=== PATIENT | male | born 1985 | race American Indian/Alaskan Native ===

== ENCOUNTER 2022-01-08 05:15 | Inpatient (IN) | payer SELFPAY ==
[2022-01-08] MEDS ORDERED: SODIUM CHLORIDE 0.9% 1000 ML 1,000 ML IV ONE ×2 (06:32→10:00)
[2022-01-08] MEDS ORDERED: fentaNYL 100 MCG/2 ML INJ IV ONE ×2 (06:32→09:00)
[2022-01-08] MEDS ORDERED: FAMOTIDINE 20 MG/2 ML INJ IV ONE ×2 (06:32→09:00)
[2022-01-08] MEDS ORDERED: ONDANSETRON 4 MG/2 ML INJ IV ONE ×2 (06:32→09:00)
--- NOTE | 2022-01-08 06:37 | Emergency Department Report ---
HPI - General Chief Complaint: Abdominal Pain Time Seen by Provider: 01/08/22 06:25 - HPI HPI: Room 40 Patient is a 36-year-old male present with a chief complaint of abdominal pain. Patient states he drinks alcohol frequently and has a history of chronic pancreatitis. Patient states symptoms began 2 days ago after consuming wine he developed epigastric and left upper quadrant abdominal pain described as sharp and burning in nature. Patient then developed nausea vomiting. Patient denies history of diarrhea or fever at home however this morning the significant other states EMS was called and they thought the patient had a fever. Patient comp lains of some shortness of breath. Patient currently gives his pain a score of 10/10 ED Past Medical Hx - Past Medical History Previous Medical History?: Yes Additional medical history: Chronic pancreatitis - Surgical History Past Surgical History?: No - Family History Family history: no significant - Social History Smoking Status: Current Every Day Smoker (1/7 pack/day) Substance Use Type: None (Denies illicit drug use), Alcohol (Frequently) ED Review of Systems ROS: Stated complaint: ABDOMINAL PAIN Other details as noted in HPI Constitutional: fever (Questionable) Eyes: denies: eye pain ENT: denies: throat pain Respiratory: shortness of breath Cardiovascular: denies: chest pain Endocrine: no symptoms reported Gastrointestinal: abdominal pain, nausea, vomiting. denies: diarrhea Genitourinary: denies: dysuria Musculoskeletal: denies: back pain Neurological: denies: headache Physical Exam - Physical Exam Vital Signs: Vital Signs 01/08/22 05:54 Temperature 98.6 F Pulse Rate 67 Respiratory 18 Rate Blood Pressure 147/95 O2 Sat by Pulse 96 Oximetry Physical Exam: GENERAL: The patient is well-developed well-nourished male lying on stretcher no t appearing to be in acute distress. [] HEENT: Normocephalic. Atraumatic. Extraocular motions are intact. Patient has moist mucous membranes. NECK: Supple. Trachea midline CHEST/LUNGS: Clear to auscultation. There is no respiratory distress noted. HEART/CARDIOVASCULAR: Regular. There is no tachycardia. There is no gallop rub or murmur. ABDOMEN: Abdomen is soft, with tenderness to palpation in the right upper quadrant, midepigastric and left upper quadrant. The remainder the abdomen is soft and nontender. Patient has normal bowel sounds. There is no abdominal distention. SKIN: There is no rash. There is no edema. There is no diaphoresis. NEURO: The patient is awake, alert, and oriented. The patient is cooperative. The patient has no focal neurologic deficits. The patient has normal speech. GCS 15 MUSCULOSKELETAL: There is no evidence of acute injury. ED Course Vital Signs 01/08/22 05:54 Temperature 98.6 F Pulse Rate 67 Respiratory 18 Rate Blood Pressure 147/95 O2 Sat by Pulse 96 Oximetry ED Medical Decision Making - Lab Data Result diagrams: 01/08/22 06:33 01/08/22 06:33 - Radiology Data Radiology results: report reviewed (CT abdomen pelvis CT chest), image reviewed (CT abdomen pelvis, CT chest) [facility] [address] [place] [address] Cat Scan Report Signed Patient: LOUIE SOSA MR# : [id number] : 1985 Acct:[id number] Age/Sex: 36 / M ADM Date: 01/08/22 Loc: ED Attending Dr: Ordering Physician: CANDICE BENAVIDES MD Date of Service: 01/08/22 Procedure(s): CT abdomen pelvis w con Accession Number(s): [id number] cc: CANDICE BENAVIDES MD CT ABDOMEN AND PELVIS WITH CONTRAST HISTORY: Epigastric and left upper quadrant pain. COMPARISON: None. TECHNIQUE: CT images of the abdomen and pelvis were obtained following administration of intravenous contrast. All CT scans at this location are performed using CT dose reduction for ALARA by means of automated exposure control. CONTRAST: 100 ml of intravenous contrast administe red. FINDINGS: Lungs/bones: Lung bases are clear Abdomen/pelvis: There is diffuse fatty infiltration the liver. There is marked inflammatory change surrounding the pancreas most significant in the body and pancreatic tail. Some low signal density seen in the pancreatic tail which is indistinct. Inflammatory changes seen surrounding the stomach and left upper abdomen bowel loops. There is some secondary mild inflammation thickening of the splenic flexure and left colon. No drainable abscess is seen. Adrenal glands, kidneys appear normal. No bowel obstruction. There is free fluid within the pelvis. The appendix is not well seen. Urinary bladder appears normal. Focal area of dilatation of the p enile urethra just distal to the prosthetic urethra best seen on image 171. Small scattered nodes seen throughout the mesentery no acute bone findings are seen. IMPRESSION: 1. Diffuse inflammatory change and fluid within and surrounding the pancreas in left upper abdomen concerning for acute pancrea titis. Heterogeneity within the body and tail could represent some early necrosis. No drainable fluid collection is seen. There is secondary inflammatory change and thickening of the splenic flexure of the colon. 2. Free fluid is seen in the pelvis. The appendix is not well seen. 3. Fatty infiltration the liver. Signer Name: Salas Robin MD Signed: 01/08/2022 9:25 AM Workstation Name: [id number] Transcribed By: CW Dictated By: JAYNE ROBIN MD Electronically Authenticated By: JAYNE ROBIN MD Signed Date/Time: 01/08/22924 DD/ 1 TD/TT: [facility] [address] [place] [address] Cat Scan Report Signed Patient: LOUIE SOSA MR# : [id number] : 1985 Acct:[id number] Age/Sex: 36 / M ADM Date: 01/08/22 Loc: ED Attending Dr: Ordering Physician: CANDICE BENAVIDES MD Date of Service: 01/08/22 Procedure(s): CT angio chest Accession Number(s): [id number] cc: CANDICE BENAVIDES MD CTA CHEST WITH CONTRAST INDICATION / CLINICAL INFORMATION: Left lower chest pain. TECHNIQUE: Axial CT images were obtained through the chest after injection of IV contrast. 3 plane MIP and/or 3D reconstructions were produced. All CT scans at this location are performed using CT dose reduction for ALARA by means of automated exposure control. COMPARISON: None available. FINDINGS: The pulmonary arteries are patent without filling defect or evidence for PTE. Heart and aorta appear normal. No focal consolidation or pleural effusion. No definite mediastinal or hilar adenopathy. Trachea appears normal. In the upper abdomen there is inflammatory change surrounding the pancreatic tail and within the left upper abdomen. Diffuse fatty infiltration liver IMPRESSION: 1. No CT evidence for pulmonary embolism. 2. Inflammatory change with fluid and inflammation surrounding the pancreatic tail and left upper abdomen. Findings could be seen with pancreatitis. 3. Fatty infiltration the liver. Signer Name: Salas Robin MD Signed: 01/08/2022 9:05 AM Workstation Name: [id number] Transcribed By: CW Dictated By: JAYNE ROBIN MD Electronically Authenticated By: JAYNE ROBIN MD Signed Date/Time: 01/08/22904 DD/ 2 TD/TT: - Differential Diagnosis Acute on chronic pancreatitis, gastritis, peptic ulcer disease, PE, ACS Critical care attestation.: If time is entered above; I have spent that time in minutes in the direct care of this critically ill patient, excluding procedure time. ED Disposition Clinical Impression: Acute pancreatitis, Acute abdominal pain Disposition: ADMITTED INPATIENT Is pt being admited?: Yes Does the pt Need Aspirin: No Condition: Fair Referrals: JULES SORENSEN MD [Primary Care Provider] - 3-5 Days Time of Disposition: 10:02 (Care transferred to hospitalist (Dr. Thompson))
[2022-01-08 07:13] LABS: Basophils % (Auto) 0.3 % (0.0-1.8); Eosinophils # (Auto) 0.1 K/mm3 (0.0-0.4); Eosinophils % (Auto) 0.5 % (0.0-4.3); Hematocrit 45.6 % (35.5-45.6); Hemoglobin 15.2 gm/dl (11.8-15.2); Lymphocytes # (Auto) 0.6 K/mm3 (1.2-5.4); Lymphocytes % (Auto) 4.8 % (13.4-35.0); Mean Corpuscular HGB Conc 33 % (32-34); Mean Corpuscular Volume 92 fl (84-94); Monocytes # (Auto) 0.9 K/mm3 (0.0-0.8); Monocytes % (Auto) 7.2 % (0.0-7.3); Platelet Count 240 K/mm3 (140-440); Red Blood Count 4.96 M/mm3 (3.65-5.03); Red Cell Distribution Width 12.3 % (13.2-15.2)
[2022-01-08 07:28] LABS: Alanine Aminotransferase 67 units/L (7-56); Albumin 5.3 g/dL (3.9-5); BUN/Creatinine Ratio 10; Blood Urea Nitrogen 8 mg/dL (9-20); Calcium 9.7 mg/dL (8.4-10.2); Hemolysis Index 4
[2022-01-08 07:29] LABS: Creatine Kinase MB 1.4 ng/mL (0.0-4.0)
--- NOTE | 2022-01-08 09:10 | Cat Scan Report ---
CTA CHEST WITH CONTRAST INDICATION / CLINICAL INFORMATION: Left lower chest pain. TECHNIQUE: Axial CT images were obtained through the chest after injection of IV contrast. 3 plane AL P and/or 3D reconstructions were produced. All CT scans at this location are performed using CT dose reduction for ALARA by means of automated exposure control. COMPARISON: None available. FINDINGS: The pulmonary arteries are patent without filling defect or evidence for PTE. Heart and aorta appear normal. No focal consolidation or pleural effusion. No definite mediastinal or hilar adenopathy. Trac hea appears normal. In the upper abdomen there is inflammatory change surrounding the pancreatic tail and within the left upper abdomen. Diffuse fatty infiltration liver IMPRESSION: 1. No CT evidence for pulmonary embolism. 2. Inflammatory change with fluid and inflammation surrounding the pancreatic tail and left upper abd omen. Findings could be seen with pancreatitis. 3. Fatty infiltration the liver. Signer Name: Salas Robin MD Signed: 01/08/2022 9:05 AM Workstation Name: [id number]
--- NOTE | 2022-01-08 09:29 | Cat Scan Report ---
CT ABDOMEN AND PELVIS WITH CONTRAST HISTORY: Epigastric and left upper quadrant pain. COMPARISON: None. TECHNIQUE: CT images of the abdomen and pelvis were obtained following administration of intravenous contrast. All CT scans at this location are performed using CT dose reduction for ALARA by means of automated exposure control. CONTRAST: 100 ml of intravenous contrast administered. FINDINGS: Lungs/bones: Lung bases are clear Abdomen/pelvis: There is diffuse fatty infiltration the liver. There is marked inflammatory change s urrounding the pancreas most significant in the body and pancreatic tail. Some low signal density see n in the pancreatic tail which is indistinct. Inflammatory changes seen surrounding the stomach and l eft upper abdomen bowel loops. There is some secondary mild inflammation thickening of the splenic fl exure and left colon. No drainable abscess is seen. Adrenal glands, kidneys appear normal. No bowel o bstruction. There is free fluid within the pelvis. The appendix is not well seen. Urinary bladder appears normal. Focal area of dilatation of the penile urethra just distal to the prosthetic urethra best seen on im age 171. Small scattered nodes seen throughout the mesentery no acute bone findings are seen. IMPRESSION: 1. Diffuse inflammatory change and fluid within and surrounding the pancreas in left upper abdomen co ncerning for acute pancreatitis. Heterogeneity within the body and tail could represent some early ne crosis. No drainable fluid collection is seen. There is secondary inflammatory change and thickening of the splenic flexure of the colon. 2. Free fluid is seen in the pelvis. The appendix is not well seen. 3. Fatty infiltration the liver. Signer Name: Salas Robin MD Signed: 01/08/2022 9:25 AM Workstation Name: [id number]
[2022-01-08] MEDS ORDERED: HYDROmorphone 1 MG/1 ML INJ IV ONE (10:00)
[2022-01-08] MEDS ORDERED: ACETAMINOPHEN 325 MG TAB PO PRN (10:44)
[2022-01-08] MEDS ORDERED: ALBUTEROL 2.5 MG/3 ML NEBU IH PRN (10:44)
[2022-01-08] MEDS ORDERED: ONDANSETRON 4 MG/2 ML INJ IV PRN (10:44)
[2022-01-08] MEDS ORDERED: LORazepam 2 MG/ML VIAL IV PRN ×2 (10:44)
[2022-01-08] MEDS ORDERED: NALOXONE 0.4 MG/1 ML INJ IV PRN (10:44)
--- NOTE | 2022-01-08 10:55 | History and Physical Report ---
History of Present Illness Date of examination: 01/08/22 Date of admission: 01/08/22 Chief complaint: Abdominal pain with nausea vomiting History of present illness: Patient is a 36-year-old male with no significant past medical history except for prior pancreatitis from alcohol use present with a chief complaint of abdominal pain. Patient states he drinks alcohol frequently and has a history of chronic pancreatitis. Patient states symptoms began 2 days ago after consuming wine he developed epigastric and left upper quadrant abdominal pain described as sharp and burning in nature. Patient then developed nausea vomiting. Patient denies history of diarrhea or fever at home however this morning the significant other states EMS was called and they thought the patient had a fever. Patient complains of some shortness of breath. In the ED admitted with abdominal pain score of 10/10 now on 03/12 and states that the fentanyl he was given was not working. He denies any hematemesis, diarrhea or melena. Imaging studies done in the ER shows possible early necrosis. Patient denies any fever. Past History Past Medical History: other (Pancreatitis) Past Surgical History: No surgical history Social history: lives with family, smoking, alcohol abuse, full code Family history: no significant family history Medications and Allergies Allergies Allergy/AdvReac Type Severity Reaction Status Date / Time No Known Allergies Allergy Unverified 01/08/22 05:58 Active Meds: Active Medications Acetaminophen (Acetaminophen 325 Mg Tab) 650 mg PO Q4H PRN PRN Reason: Pain MILD(1-3)/Fever >100.5/PALMER Albuterol (Albuterol 2.5 Mg/3 Ml Nebu) 2.5 mg IH Q4HRT PRN PRN Reason: Shortness Of Breath Famotidine (Famotidine 20 Mg/2 Ml Inj) 20 mg IV BID KEYON Hydromorphone HCl (Hydromorphone 1 Mg/1 Ml Inj) 1 mg IV Q6H PRN PRN Reason: Pain , Severe (7-10) Sodium Chloride (Nacl 0.9% 1000 Ml) 1,000 mls @ 125 mls/hr IV ONCE ONE Stop: 01/08/22 17:59 Lactated Ringer's (Lactated Ringers) 1,000 mls @ 125 mls/hr IV DIRECT KEYON Lorazepam (Lorazepam 2 Mg/Ml Vial) 2 mg IV Q1H PRN PRN Reason: CIWA-Ar 8-15 Lorazepam (Lorazepam 2 Mg/Ml Vial) 4 mg IV Q1H PRN PRN Reason: CIWA-Ar 16-25 Morphine Sulfate (Morphine 2 Mg/1 Ml Inj) 2 mg IV Q4H PRN PRN Reason: Pain, Moderate (4-6) Naloxone HCl (Naloxone 0.4 Mg/1 Ml Inj) 0.1 mg IV Q2MIN PRN PRN Reason: Res Rate </= 8 or 02 SAT < 92% Ondansetron HCl (Ondansetron 4 Mg/2 Ml Inj) 4 mg IV Q4H PRN PRN Reason: Nausea And Vomiting Senna (Sennosides 8.6 Mg Tab) 8.6 mg PO Q12HR KEYON Sodium Chloride (Sodium Chloride 0.9% 10 Ml Flush Syringe) 10 ml IV BID KEYON Sodium Chloride (Sodium Chloride 0.9% 10 Ml Flush Syringe) 10 ml IV PRN PRN PRN Reason: LINE FLUSH Review of Systems All systems: negative Constitutional: no weight gain, no fever Gastrointestinal: abdominal pain, nausea, vomiting, no diarrhea, no constipa tion, no change in bowel habits, no hematemesis, no coffee ground emesis, no BRBPR, no melena, no hematochezia, no loss of appetite, no early satiety, no heartburn, no indigestion, no belching Exam - Physical Exam Narrative exam: VITAL SIGNS: Reviewed. GENERAL: The patient appears normally developed, Vital signs as documented. HEAD: No signs of head trauma. EYES: Pupils are equal. Extraocular motions intact. EARS: Hearing grossly intact. MOUTH: Oropharynx is normal. NECK: No adenopathy, no JVD. CHEST: Chest with clear breath sounds bilaterally. No wheezes, rales, or rhonchi. CARDIAC: Regular rate and rhythm. S1 and S2, without murmurs, gallops, or rubs. VASCULAR: No Edema. Peripheral pulses normal and equal in all extremities. ABDOMEN: Soft, tender, guarding but no rebound and non distended. No masses palpated. Bowel Sounds normal. MUSCULOSKELETAL: Good range of motion of all major joints. Extremities without clubbing, cyanosis or edema. NEUROLOGIC EXAM: Alert and oriented x 3 No focal sensory or strength deficits. Speech normal. Follows commands. PSYCHIATRIC: Mood normal. SKIN: detail exam as documented in skin assessment - Constitutional Vitals: Temp Pulse Resp BP Pulse Ox 99.4 F 95 H 18 140/73 94 01/08/22 09:41 01/08/22 09:41 01/08/22 09:41 01/08/22 09:41 01/08/22 09:41 HEART Score - HEART Score Troponin: Troponin T < 0.010 ng/mL (0.00-0.029) 01/08/22 06:41 Results - Labs CBC & Chem 7: 01/08/22 06:33 01/08/22 06:33 Labs: Laboratory Last Values WBC 12.2 K/mm3 (4.5-11.0) H 01/08/22 06:33 RBC 4.96 M/mm3 (3.65-5.03) 01/08/22 06:33 Hgb 15.2 gm/dl (11.8-15.2) 01/08/22 06:33 Hct 45.6 % (35.5-45.6) 01/08/22 06:33 MCV 92 fl (84-94) 01/08/22 06:33 MCH 31 pg (28-32) 01/08/22 06:33 MCHC 33 % (32-34) 01/08/22 06:33 RDW 12.3 % (13.2-15.2) L 01/08/22 06:33 Plt Count 240 K/mm3 (140-440) 01/08/22 06:33 Lymph % (Auto) 4.8 % (13.4-35.0) L 01/08/22 06:33 Trigg % (Auto) 7.2 % (0.0-7.3) 01/08/22 06:33 Eos % (Auto) 0.5 % (0.0-4.3) 01/08/22 06:33 Baso % (Auto) 0.3 % (0.0-1.8) 01/08/22 06:33 Lymph # (Auto) 0.6 K/mm3 (1.2-5.4) L 01/08/22 06:33 Trigg # (Auto) 0.9 K/mm3 (0.0-0.8) H 01/08/22 06:33 Eos # (Auto) 0.1 K/mm3 (0.0-0.4) 01/08/22 06:33 Baso # (Auto) 0.0 K/mm3 (0.0-0.1) 01/08/22 06:33 Seg Neutrophils % 87.2 % (40.0-70.0) H 01/08/22 06:33 Seg Neutrophils # 10.6 K/mm3 (1.8-7.7) H 01/08/22 06:33 Sodium 138 mmol/L (137-145) 01/08/22 06:33 Potassium 4.1 mmol/L (3.6-5.0) 01/08/22 06:33 Chloride 96.0 mmol/L (98-107) L 01/08/22 06:33 Carbon Dioxide 29 mmol/L (22-30) 01/08/22 06:33 Anion Gap 17 mmol/L 01/08/22 06:33 BUN 8 mg/dL (9-20) L 01/08/22 06:33 Creatinine 0.8 mg/dL (0.8-1.3) 01/08/22 06:33 Estimated GFR > 60 ml/min 01/08/22 06:33 BUN/Creatinine Ratio 10 % 01/08/22 06:33 Glucose 108 mg/dL (75-100) H 01/08/22 06:33 Calcium 9.7 mg/dL (8.4-10.2) 01/08/22 06:33 Total Bilirubin 0.80 mg/dL (0.1-1.2) 01/08/22 06:33 AST 42 units/L (5-40) H 01/08/22 06:33 ALT 67 units/L (7-56) H 01/08/22 06:33 Alkaline Phosphatase 130 units/L (35-129) H 01/08/22 06:33 Total Creatine Kinase 247 units/L (55-170) H 01/08/22 06:41 CK-MB (CK-2) 1.4 ng/mL (0.0-4.0) 01/08/22 06:41 CK-MB (CK-2) Rel Index 0.5 (0-4) 01/08/22 06:41 Troponin T < 0.010 ng/mL (0.00-0.029) 01/08/22 06:41 Total Protein 8.1 g/dL (6.3-8.2) 01/08/22 06:33 Albumin 5.3 g/dL (3.9-5) H 01/08/22 06:33 Albumin/Globulin Ratio 1.9 % 01/08/22 06:33 Lipase 915 units/L (13-60) H 01/08/22 06:33 Assessment and Plan Assessment and plan: Patient is a 36-year-old male with no significant past medical history except for prior pancreatitis from alcohol use present with a chief complaint of abdominal pain. Patient states he drinks alcohol frequently and has a history of chronic pancreatitis. Patient states symptoms began 2 days ago after consuming wine he developed epigastric and left upper quadrant abdominal pain described as sharp and burning in nature. Patient then developed nausea vomiting. Patient denies history of diarrhea or fever at home however this morning the significant other states EMS was called and they thought the patient had a fever. Patient complains of some shortness of breath. In the ED admitted with abdominal pain score of 10/10 now on 03/12 and states that the fentanyl he was given was not working. He denies any hematemesis, diarrhea or melena. Imaging studies done in the ER shows possible early necrosis. Patient denies any fever. Radiology results: report reviewed (CT abdomen pelvis CT chest), image reviewed (CT abdomen pelvis, CT chest) 1. Diffuse inflammatory change and fluid within and surrounding the pancreas in left upper abdomen concerning for acute pancreatitis. Heterogeneity within the body and tail could represent some early necrosis. No drainable fluid collection is seen. There is secondary inflammatory change and thickening of the splenic flexure of the colon. 2. Free fluid is seen in the pelvis. The appendix is not well seen. 3. Fatty infiltration the liver. CT angio chest IMPRESSION: 1. No CT evidence for pulmonary embolism. 2. Inflammatory change with fluid and inflammation surrounding the pancreatic tail and left upper abdomen. Findings could be seen with pancreatitis. 3. Fatty infiltration the liver. Acute on chronic pancreatitis likely secondary to EtOH use EtOH use disorder and dependence Abdominal pain secondary to above Systemic inflammatory response syndrome secondary to acute pancreatitis Elevated transaminases Tobacco use disorder Plan Admit to MedSurg unit Hydration with lactated Ringer's Start on Zosyn considering possible necrotic pancreas GI consultation Pain control Antiemetic Monitor labs replace electrolytes [facility] protocol for withdrawal Thiamine, multivitamin, and folic acid Check magnesium level Counseling provided to the patient about lifestyle changes and also EtOH and tobacco use disorder. Total time spent on counseling 30 minutes family at bedside discussed with them. Prognosis guarded Advance Directives: Yes Plan of care discussed with patient/family: Yes
[2022-01-08] MEDS: PIPERACIL/TAZOBACTA 4.5/NS 100 4.5 GM/100 ML VIAL IV SCH ×2 (14:01→22:01)
[2022-01-08] MEDS: MORPHINE 2 MG/1 ML INJ IV PRN ×2 (14:03→19:16)
[2022-01-08] MEDS: LACTATED RINGERS 1,000 ML IV SCH ×2 (14:24→23:52)
[2022-01-08] MEDS: HYDROmorphone 1 MG/1 ML INJ IV PRN (21:53)
[2022-01-08] MEDS: SENNOSIDES 8.6 MG TAB PO SCH (21:54)
[2022-01-08] MEDS: FAMOTIDINE 20 MG/2 ML INJ IV SCH (21:54)
[2022-01-09] MEDS: MORPHINE 2 MG/1 ML INJ IV PRN ×3 (00:26→19:22)
[2022-01-09] MEDS: PIPERACIL/TAZOBACTA 4.5/NS 100 4.5 GM/100 ML VIAL IV SCH ×4 (03:31→22:27)
[2022-01-09] MEDS: HYDROmorphone 1 MG/1 ML INJ IV PRN ×3 (04:49→22:35)
[2022-01-09 06:57] LABS: Basophils % (Auto) 0.2 % (0.0-1.8); Eosinophils # (Auto) 0.1 K/mm3 (0.0-0.4); Eosinophils % (Auto) 0.3 % (0.0-4.3); Hematocrit 44.4 % (35.5-45.6); Hemoglobin 14.6 gm/dl (11.8-15.2); Lymphocytes # (Auto) 0.5 K/mm3 (1.2-5.4); Lymphocytes % (Auto) 2.7 % (13.4-35.0); Mean Corpuscular HGB Conc 33 % (32-34); Mean Corpuscular Volume 92 fl (84-94); Monocytes # (Auto) 1.5 K/mm3 (0.0-0.8); Monocytes % (Auto) 8.1 % (0.0-7.3); Platelet Count 229 K/mm3 (140-440); Red Blood Count 4.83 M/mm3 (3.65-5.03); Red Cell Distribution Width 12.3 % (13.2-15.2)
[2022-01-09 07:22] LABS: Alanine Aminotransferase 44 units/L (7-56); Albumin 4.7 g/dL (3.9-5); BUN/Creatinine Ratio 11; Blood Urea Nitrogen 9 mg/dL (9-20); Calcium 9.6 mg/dL (8.4-10.2); Hemolysis Index 3
[2022-01-09] MEDS: FAMOTIDINE 20 MG/2 ML INJ IV SCH ×2 (09:06→22:27)
[2022-01-09] MEDS: SENNOSIDES 8.6 MG TAB PO SCH ×2 (09:06→22:27)
[2022-01-09] MEDS: LACTATED RINGERS 1,000 ML IV SCH ×2 (09:07→20:30)
--- NOTE | 2022-01-09 09:38 | Gastroenterology Consultation ---
History of Present Illness - Reason for Consult Consult date: 01/09/22 acute pancreatitis Requesting physician: LINDA BAKER - History of Present Illness Patient is a 36-year-old male with no significant past medical history except for prior pancreatitis from alcohol use present with a chief complaint of abdominal pain. Patient states he drinks alcohol frequently and has a history of chronic pancreatitis. Patient reports 3 days abd pain, epigastric, sharp, severe, radiating to the back, worse with eating better with nothing, constant Patient reports he has been cutting back on his alcohol drinking 1-2 bottles of wine a night as well as a few large cans of beer however he reports he was celebrating a few days ago drink multiple bottles of wine and then the next day drank half a bottle of tequila subsequent to that developed the pain as above and the pancreatitis Patient's is with him in bed and present for history Obtained/updated/reviewed patient's current medications Past History Past Medical History: other (Pancreatitis) Past Surgical History: No surgical history Social history: lives with family, smoking, alcohol abuse, full code Family history: no significant family history Medications and Allergies Allergies Allergy/AdvReac Type Severity Reaction Status Date / Time No Known Allergies Allergy Verified 01/08/22 16:18 Active Meds: Active Medications Acetaminophen (Acetaminophen 325 Mg Tab) 650 mg PO Q4H PRN PRN Reason: Pain MILD(1-3)/Fever >100.5/PALMER Albuterol (Albuterol 2.5 Mg/3 Ml Nebu) 2.5 mg IH Q4HRT PRN PRN Reason: Shortness Of Breath Famotidine (Famotidine 20 Mg/2 Ml Inj) 20 mg IV BID [facility] Last Admin: 01/09/22 09:06 Dose: 20 mg Hydromorphone HCl (Hydromorphone 1 Mg/1 Ml Inj) 1 mg IV Q6H PRN PRN Reason: Pain , Severe (7-10) Last Admin: 01/09/22 04:49 Dose: 1 mg Lactated Ringer's (Lactated Ringers) 1,000 mls @ 125 mls/hr IV DIRECT KEYON Last Admin: 01/09/22 09:07 Dose: 125 mls/hr Piperacillin Sod/Tazobactam Sod (Zosyn/Ns 4.5gm/100ml) 4.5 gm in 100 mls @ 200 mls/hr IV Q8H KEYON; Protocol Last Infusion: 01/09/22 04:51 Dose: Infused Lorazepam (Lorazepam 2 Mg/Ml Vial) 2 mg IV Q1H PRN PRN Reason: CIWA-Ar 8-15 Last Admin: 01/08/22 14:39 Dose: 2 mg Lorazepam (Lorazepam 2 Mg/Ml Vial) 4 mg IV Q1H PRN PRN Reason: CIWA-Ar 16-25 Morphine Sulfate (Morphine 2 Mg/1 Ml Inj) 2 mg IV Q4H PRN PRN Reason: Pain, Moderate (4-6) Last Admin: 01/09/22 08:49 Dose: 2 mg Naloxone HCl (Naloxone 0.4 Mg/1 Ml Inj) 0.1 mg IV Q2MIN PRN PRN Reason: Res Rate </= 8 or 02 SAT < 92% Ondansetron HCl (Ondansetron 4 Mg/2 Ml Inj) 4 mg IV Q4H PRN PRN Reason: Nausea And Vomiting Senna (Sennosides 8.6 Mg Tab) 8.6 mg PO Q12HR [facility] Last Admin: 01/09/22 09:06 Dose: 8.6 mg Sodium Chloride (Sodium Chloride 0.9% 10 Ml Flush Syringe) 10 ml IV BID KEYON Last Admin: 01/09/22 09:06 Dose: 10 ml Sodium Chloride (Sodium Chloride 0.9% 10 Ml Flush Syringe) 10 ml IV PRN PRN PRN Reason: LINE FLUSH Review of Systems - Review of Systems All systems: negative (10 Systems reviewed and negative except as mentioned above in the history of present illness) Exam - Constitutional Vital Signs: Temp Pulse Resp BP Pulse Ox 98.6 F 59 L 16 142/86 95 01/09/22 05:04 01/09/22 05:04 01/09/22 05:04 01/09/22 05:04 01/09/22 05:04 General appearance: no acute distress - EENT Eyes: EOM intact ENT: hearing intact - Neck Neck: supple - Respiratory Respiratory effort: normal - Cardiovascular Rhythm: regular - Gastrointestinal General gastrointestinal: Present: soft, tender, normal bowel sounds - Integumentary Integumentary: Present: dry - Musculoskeletal Musculoskeletal: normal - Neurologic Neurological: alert and oriented x3 - Psychiatric Psychiatric: appropriate mood/affect - Labs CBC & Chem 7: 01/09/22 05:55 01/09/22 05:55 Lab Results: Laboratory Results - last 24 hr 01/08/22 01/09/22 01/09/22 06:44 05:55 05:55 WBC 18.3 H RBC 4.83 Hgb 14.6 Hct 44.4 MCV 92 MCH 30 MCHC 33 RDW 12.3 L Plt Count 229 Lymph % (Auto) 2.7 L [place] % (Auto) 8.1 H Eos % (Auto) 0.3 Baso % (Auto) 0.2 Lymph # (Auto) 0.5 L [place] # (Auto) 1.5 H Eos # (Auto) 0.1 Baso # (Auto) 0.0 Seg Neutrophils % 88.7 H Seg Neutrophils # 16.2 H Sodium 136 L Potassium 3.9 Chloride 96.3 L Carbon Dioxide 27 Anion Gap 17 BUN 9 Creatinine 0.8 Estimated GFR > 60 BUN/Creatinine Ratio 11 Glucose 83 Calcium 9.6 Magnesium 1.70 Total Bilirubin 1.20 AST 29 ALT 44 Alkaline Phosphatase 110 Total Protein 7.0 Albumin 4.7 Albumin/Globulin Ratio 2.0 Lipase 641 H Assessment and Plan Patient denies new medications etc. so given history of recent increased alcohol use acute alcoholic pancreatitis is presumably the source I discussed with him and his at length the importance of alcohol cessation I am increasing patient's IV fluids, starting patient on a clear liquid diet advance as tolerated and continue as needed pain medication We will continue with daily - Patient Problems (1) Acute pancreatitis Current Visit: Yes Status: Acute (2) ETOH abuse Current Visit: Yes Status: Acute (3) Epigastric abdominal pain Current Visit: Yes Status: Acute
--- NOTE | 2022-01-09 11:22 | Electrocardiograph Report ---
[facility] Test Date: 2022-01-08 Test Time: 14:17:16 Pat Name: LOUIE SOSA Department: Room: A368 1 Gender: M College Coach: NARINDER : 1985 Requested By: CANDICE BENAVIDES Order Number: [id number] Reading MD: Dionte Lam Measurements Intervals [place] Rate: 49 P: 63 NH: 169 QRS: 58 QRSD: 94 T: 58 QT: 432 QTc: 389 Interpretive Statements Sinus bradycardia Consider left ventricular hypertrophy ST elev, probable normal early repol pattern No previous ECG available for comparison Electronically Signed On 01-09-2022 11:21:35 EDT by Dionte Lam
--- NOTE | 2022-01-09 12:05 | Progress Note ---
Assessment and Plan Assessment and plan: Patient is a 36-year-old male with no significant past medical history except for prior pancreatitis from alcohol use present with a chief complaint of abdominal pain. Patient states he drinks alcohol frequently and has a history of chronic pancreatitis. Patient states symptoms began 2 days ago after c onsuming wine he developed epigastric and left upper quadrant abdominal pain described as sharp and burning in nature. Patient then developed nausea vomiting. Patient denies history of diarrhea or fever at home however this morning the significant other states EMS was called and they thought the patient had a fever. Patient complains of some shortness of breath. In the ED admitted with abdominal pain score of 10/10 now on 03/12 and states that the fentanyl he was given was not working. He denies any hematemesis, diarrhea or melena. Imaging studies done in the ER shows possible early necrosis. Patient denies any fever. Radiology results: report reviewed (CT abdomen pelvis CT chest), image reviewed (CT abdomen pelvis, CT chest) 1. Diffuse inflammatory change and fluid within and surrounding the pancreas in left upper abdomen concerning for acute pancreatitis. Heterogeneity within the body and tail could represent some early necrosis. No drainable fluid collection is seen. There is secondary inflammatory change and thickening of the splenic flexure of the colon. 2. Free fluid is seen in the pelvis. The appendix is not well seen. 3. Fatty infiltration the liver. CT angio chest IMPRESSION: 1. No CT evidence for pulmonary embolism. 2. Inflammatory change with fluid and inflammation surrounding the pancreatic tail and left upper abdomen. Findings could be seen with pancreatitis. 3. Fatty infiltration the liver. Acute on chronic pancreatitis likely secondary to EtOH use EtOH use disorder and dependence Abdominal pain secondary to above Systemic inflammatory response syndrome secondary to acute pancreatitis Elevated transaminases Leukocytosis Hypomagnesemia Tobacco use disorder Plan 01/09: Patient was admitted for acute pancreatitis secondary to alcohol use. GI saw the patient today increased fluid. Leukocytosis still worsening will keep a clear monitoring of this. Clear liquids started today by GI as tolerated by patient. Again counseling about alcohol use discussed extensively. Lipase is decreasing LFTs improved. Will give Magnesium supplementation Patient can be discharged once tolerating diet. Hydration with lactated Ringer's Continue on Zosyn considering possible necrotic pancreas GI consultation Pain control Antiemetic Monitor labs replace electrolytes [facility] protocol for withdrawal Thiamine, multivitamin, and folic acid Check magnesium level Counseling provided to the patient about lifestyle changes and also EtOH and tobacco use disorder. Total time spent on counseling 30 minutes family at bedside discussed with them. Prognosis guarded History Interval history: Patient seen and examined still with abdominal pain. Mild worsening in leukocytosis noted. Rates the pain 6/10 in intensity. GI input is appreciated Hospitalist Physical - Physical exam Narrative exam: VITAL SIGNS: Reviewed. GENERAL: The patient appears normally developed, does not appear uncomfortable vital signs as documented. HEAD: No signs of head trauma. EYES: Pupils are equal. Extraocular motions intact. EARS: Hearing grossly intact. MOUTH: Oropharynx is normal. NECK: No adenopathy, no JVD. CHEST: Chest with clear breath sounds bilaterally. No wheezes, rales, or rhonchi. CARDIAC: Regular rate and rhythm. S1 and S2, without murmurs, gallops, or rubs. VASCULAR: No Edema. Peripheral pulses normal and equal in all extremities. ABDOMEN: Soft, tender, guarding but no rebound and non distended. No masses palpated. Bowel Sounds normal. MUSCULOSKELETAL: Good range of motion of all major joints. Extremities without clubbing, cyanosis or edema. NEUROLOGIC EXAM: Alert and oriented x 3 No focal sensory or strength deficits. Speech normal. Follows commands. PSYCHIATRIC: Mood normal. SKIN: detail exam as documented in skin assessment - Constitutional Vitals: Temp Pulse Resp BP Pulse Ox 98.6 F 59 L 16 142/86 99 01/09/22 05:04 01/09/22 05:04 01/09/22 05:04 01/09/22 05:04 01/09/22 09:36 HEART Score - HEART Score Troponin: Troponin T < 0.010 ng/mL (0.00-0.029) 01/08/22 06:41 Results - Labs CBC & Chem 7: 01/09/22 05:55 01/09/22 05:55 Labs: Laboratory Last Values WBC 18.3 K/mm3 (4.5-11.0) H 01/09/22 05:55 RBC 4.83 M/mm3 (3.65-5.03) 01/09/22 05:55 Hgb 14.6 gm/dl (11.8-15.2) 01/09/22 05:55 Hct 44.4 % (35.5-45.6) 01/09/22 05:55 MCV 92 fl (84-94) 01/09/22 05:55 MCH 30 pg (28-32) 01/09/22 05:55 MCHC 33 % (32-34) 01/09/22 05:55 RDW 12.3 % (13.2-15.2) L 01/09/22 05:55 Plt Count 229 K/mm3 (140-440) 01/09/22 05:55 Lymph % (Auto) 2.7 % (13.4-35.0) L 01/09/22 05:55 [place] % (Auto) 8.1 % (0.0-7.3) H 01/09/22 05:55 Eos % (Auto) 0.3 % (0.0-4.3) 01/09/22 05:55 Baso % (Auto) 0.2 % (0.0-1.8) 01/09/22 05:55 Lymph # (Auto) 0.5 K/mm3 (1.2-5.4) L 01/09/22 05:55 [place] # (Auto) 1.5 K/mm3 (0.0-0.8) H 01/09/22 05:55 Eos # (Auto) 0.1 K/mm3 (0.0-0.4) 01/09/22 05:55 Baso # (Auto) 0.0 K/mm3 (0.0-0.1) 01/09/22 05:55 Seg Neutrophils % 88.7 % (40.0-70.0) H 01/09/22 05:55 Seg Neutrophils # 16.2 K/mm3 (1.8-7.7) H 01/09/22 05:55 Sodium 136 mmol/L (137-145) L 01/09/22 05:55 Potassium 3.9 mmol/L (3.6-5.0) 01/09/22 05:55 Chloride 96.3 mmol/L (98-107) L 01/09/22 05:55 Carbon Dioxide 27 mmol/L (22-30) 01/09/22 05:55 Anion Gap 17 mmol/L 01/09/22 05:55 BUN 9 mg/dL (9-20) 01/09/22 05:55 Creatinine 0.8 mg/dL (0.8-1.3) 01/09/22 05:55 Estimated GFR > 60 ml/min 01/09/22 05:55 BUN/Creatinine Ratio 11 % 01/09/22 05:55 Glucose 83 mg/dL (75-100) 01/09/22 05:55 Calcium 9.6 mg/dL (8.4-10.2) 01/09/22 05:55 Magnesium 1.70 mg/dL (1.7-2.3) 01/08/22 06:44 Total Bilirubin 1.20 mg/dL (0.1-1.2) 01/09/22 05:55 AST 29 units/L (5-40) 01/09/22 05:55 ALT 44 units/L (7-56) 01/09/22 05:55 Alkaline Phosphatase 110 units/L (35-129) 01/09/22 05:55 Total Creatine Kinase 247 units/L (55-170) H 01/08/22 06:41 CK-MB (CK-2) 1.4 ng/mL (0.0-4.0) 01/08/22 06:41 CK-MB (CK-2) Rel Index 0.5 (0-4) 01/08/22 06:41 Troponin T < 0.010 ng/mL (0.00-0.029) 01/08/22 06:41 Total Protein 7.0 g/dL (6.3-8.2) 01/09/22 05:55 Albumin 4.7 g/dL (3.9-5) 01/09/22 05:55 Albumin/Globulin Ratio 2.0 % 01/09/22 05:55 Lipase 641 units/L (13-60) H 01/09/22 05:55 Reyes/IV: Voiding Method Toilet Active Medications - Current Medications Current Medications: Generic Name Dose Route Start Last Admin Trade Name Freq PRN Reason Stop Dose Admin Acetaminophen 650 mg 01/08/22 10:44 Acetaminophen 325 Mg Tab PO Q4H PRN Pain MILD(1-3)/Fever >100.5/PALMER Albuterol 2.5 mg 01/08/22 10:44 Albuterol 2.5 Mg/3 Ml Nebu IH Q4HRT PRN Shortness Of Breath Famotidine 20 mg 01/08/22 22:00 01/09/22 09:06 Famotidine 20 Mg/2 Ml Inj IV 20 mg BID KEYON Administration Hydromorphone HCl 1 mg 01/08/22 10:43 01/09/22 04:49 Hydromorphone 1 Mg/1 Ml Inj IV 1 mg Q6H PRN Administration Pain , Severe (7-10) Lactated Ringer's 1,000 mls @ 125 mls/hr 01/08/22 10:45 01/09/22 09:07 Lactated Ringers IV 125 mls/hr DIRECT KEYON Administration Piperacillin Sod/Tazobactam Sod 4.5 gm in 100 mls @ 200 mls/hr 01/08/22 11:00 01/09/22 04:51 Zosyn/Ns 4.5gm/100ml IV Infused Q8H KEYON Infusion Protocol Lorazepam 2 mg 01/08/22 10:44 01/08/22 14:39 Lorazepam 2 Mg/Ml Vial IV 2 mg Q1H PRN Administration CIWA-Ar 8-15 Lorazepam 4 mg 01/08/22 10:44 Lorazepam 2 Mg/Ml Vial IV Q1H PRN CIWA-Ar 16-25 Morphine Sulfate 2 mg 01/08/22 10:44 01/09/22 08:49 Morphine 2 Mg/1 Ml Inj IV 2 mg Q4H PRN Administration Pain, Moderate (4-6) Naloxone HCl 0.1 mg 01/08/22 10:44 Naloxone 0.4 Mg/1 Ml Inj IV Q2MIN PRN Res Rate </= 8 or 02 SAT < 92% Ondansetron HCl 4 mg 01/08/22 10:44 Ondansetron 4 Mg/2 Ml Inj IV Q4H PRN Nausea And Vomiting Senna 8.6 mg 01/08/22 22:00 01/09/22 09:06 Sennosides 8.6 Mg Tab PO 8.6 mg Q12HR KEYON Administration Sodium Chloride 10 ml 01/08/22 22:00 01/09/22 09:06 Sodium Chloride 0.9% 10 Ml Flush Syringe IV 10 ml BID KEYON Administration Sodium Chloride 10 ml 01/08/22 10:44 Sodium Chloride 0.9% 10 Ml Flush Syringe IV PRN PRN LINE FLUSH
[2022-01-09] MEDS ORDERED: MAGNESIUM SULFATE 1 GM in SODIUM CHLORIDE 0.9% 50 ML IV ONE (13:00)
[2022-01-10] MEDS: PIPERACIL/TAZOBACTA 4.5/NS 100 4.5 GM/100 ML VIAL IV SCH (02:16)
[2022-01-10] MEDS: HYDROmorphone 1 MG/1 ML INJ IV PRN ×3 (07:11→20:40)
--- NOTE | 2022-01-10 08:53 | Gastroenterology Progress Note ---
Assessment and Plan Patient gradually improving Advance diet as tolerated Continue supportive care with hydration and pain medication From GI perspective no indication for antibiotics If patient continues to improve can switch to oral pain medications and dis charge most likely in the next 1 to 2 days given history of recent increased alcohol use acute alcoholic pancreatitis is presumably the source - Patient Problems (1) Acute pancreatitis Current Visit: Yes Status: Acute (2) ETOH abuse Current Visit: Yes Status: Acute (3) Epigastric abdominal pain Current Visit: Yes Status: Acute Subjective Date of service: 01/10/22 Principal diagnosis: pancreatitis Interval history: Patient reports mild improvement in his symptoms currently with 8 out of 10 abdominal pain, epigastric, constant, duration days, gradually improving, radiating to the back, worse with eating but he is tolerating his diet, better with pain medication Objective - Constitutional Vitals: Temp Pulse Resp BP Pulse Ox 99.1 F 52 L 20 131/78 96 01/10/22 06:01 01/10/22 06:01 01/10/22 06:01 01/10/22 06:01 01/10/22 08:42 General appearance: no acute distress - EENT Eyes: EOM intact ENT: hearing intact - Neck Neck: supple - Respiratory Respiratory effort: normal - Gastrointestinal General gastrointestinal: Present: soft, tender - Integumentary Integumentary: Present: dry - Neurologic Neurological: alert and oriented x3 - Psychiatric Psychiatric: appropriate mood/affect - Labs CBC & Chem 7: 01/09/22 05:55 01/09/22 05:55
[2022-01-10 09:33] LABS: Hematocrit 43.4 % (35.5-45.6); Hemoglobin 14.2 gm/dl (11.8-15.2); Mean Corpuscular HGB Conc 33 % (32-34); Mean Corpuscular Volume 93 fl (84-94); Platelet Count 221 K/mm3 (140-440); Red Blood Count 4.68 M/mm3 (3.65-5.03); Red Cell Distribution Width 12.2 % (13.2-15.2)
--- NOTE | 2022-01-10 09:55 | Progress Note ---
Assessment and Plan Assessment and plan: Patient is a 36-year-old male with no significant past medical history except for prior pancreatitis from alcohol use present with a chief complaint of abdominal pain. Patient states he drinks alcohol frequently and has a history of chronic pancreatitis. Patient states symptoms began 2 days ago after consuming wine he developed epigastric and left upper quadrant abdominal pain described as sharp and burning in nature. Patient then developed nausea vomiting. Patient denies history of diarrhea or fever at home however this morning the significant other states EMS was called and they thought the patient had a fever. Patient complains of some shortness of breath. In the ED admitted with abdominal pain score of 10/10 now on 03/12 and states that the fentanyl he was given was not working. He denies any hematemesis, diarrhea or melena. Imaging studies done in the ER shows possible early necrosis. Patient denies any fever. Radiology results: report reviewed (CT abdomen pelvis CT chest), image reviewed (CT abdomen pelvis, CT chest) 1. Diffuse inflammatory change and fluid within and surrounding the pancreas in left upper abdomen concerning for acute pancreatitis. Heterogeneity within the body and tail could represent some early necrosis. No drainable fluid collection is seen. There is secondary inflammatory change and thickening of the splenic flexure of the colon. 2. Free fluid is seen in the pelvis. The appendix is not well seen. 3. Fatty infiltration the liver. CT angio chest IMPRESSION: 1. No CT evidence for pulmonary embolism. 2. Inflammatory change with fluid and inflammation surrounding the pancreatic tail and left upper abdomen. Findings could be seen with pancreatitis. 3. Fatty infiltration the liver. Acute on chronic pancreatitis likely secondary to EtOH use EtOH use disorder and dependence Abdominal pain secondary to above Systemic inflammatory response syndrome secondary to acute pancreatitis Elevated transaminases Leukocytosis Hypomagnesemia Tobacco use disorder Hospital course: 01/09: Patient was admitted for acute pancreatitis secondary to alcohol use. GI saw the patient today increased fluid. Leukocytosis still worsening will keep a clear monitoring of this. Clear liquids started today by GI as tolerated by patient. Again counseling about alcohol use discussed extensively. Lipase is decreasing LFTs improved. Will give Magnesium supplementation Patient can be discharged once tolerating diet. 01/10: Lipase has improved from 915 to 641, continue hydration with lactated Ringer's Discontinue Zosyn, no indication per GI, continue pain control and Antiemetic Monitor labs replace electrolytes [facility] protocol for withdrawal Thiamine, multivitamin, and folic acid If patient continues to improve can switch to oral pain medications and discharge most likely in the next 1 to 2 days History Interval history: No new issues overnight Hospitalist Physical - Constitutional Vitals: Temp Pulse Resp BP Pulse Ox 99.1 F 52 L 20 131/78 96 01/10/22 06:01 01/10/22 06:01 01/10/22 06:01 01/10/22 06:01 01/10/22 08:42 General appearance: Present: no acute distress, well-nourished - EENT Eyes: Present: PERRL, EOM intact ENT: hearing intact, clear oral mucosa, dentition normal - Neck Neck: Present: supple, normal ROM - Respiratory Respiratory effort: normal Respiratory: bilateral: CTA - Cardiovascular Rhythm: regular Heart Sounds: Present: S1 & S2. Absent: gallop, rub - Extremities Extremities: no ischemia, No edema, Full ROM - Abdominal General gastrointestinal: soft, non-tender, non-distended, normal bowel sounds - Integumentary Integumentary: Present: clear, warm, dry - Neurologic Neurologic: CNII-XII intact, moves all extremities HEART Score - HEART Score Troponin: Troponin T < 0.010 ng/mL (0.00-0.029) 01/08/22 06:41 Results - Labs CBC & Chem 7: 01/10/22 09:00 01/09/22 05:55 Labs: Laboratory Last Values WBC 11.5 K/mm3 (4.5-11.0) H 01/10/22 09:00 RBC 4.68 M/mm3 (3.65-5.03) 01/10/22 09:00 Hgb 14.2 gm/dl (11.8-15.2) 01/10/22 09:00 Hct 43.4 % (35.5-45.6) 01/10/22 09:00 MCV 93 fl (84-94) 01/10/22 09:00 MCH 30 pg (28-32) 01/10/22 09:00 MCHC 33 % (32-34) 01/10/22 09:00 RDW 12.2 % (13.2-15.2) L 01/10/22 09:00 Plt Count 221 K/mm3 (140-440) 01/10/22 09:00 Lymph % (Auto) 2.7 % (13.4-35.0) L 01/09/22 05:55 [place] % (Auto) 8.1 % (0.0-7.3) H 01/09/22 05:55 Eos % (Auto) 0.3 % (0.0-4.3) 01/09/22 05:55 Baso % (Auto) 0.2 % (0.0-1.8) 01/09/22 05:55 Lymph # (Auto) 0.5 K/mm3 (1.2-5.4) L 01/09/22 05:55 [place] # (Auto) 1.5 K/mm3 (0.0-0.8) H 01/09/22 05:55 Eos # (Auto) 0.1 K/mm3 (0.0-0.4) 01/09/22 05:55 Baso # (Auto) 0.0 K/mm3 (0.0-0.1) 01/09/22 05:55 Seg Neutrophils % 88.7 % (40.0-70.0) H 01/09/22 05:55 Seg Neutrophils # 16.2 K/mm3 (1.8-7.7) H 01/09/22 05:55 Sodium 136 mmol/L (137-145) L 01/09/22 05:55 Potassium 3.9 mmol/L (3.6-5.0) 01/09/22 05:55 Chloride 96.3 mmol/L (98-107) L 01/09/22 05:55 Carbon Dioxide 27 mmol/L (22-30) 01/09/22 05:55 Anion Gap 17 mmol/L 01/09/22 05:55 BUN 9 mg/dL (9-20) 01/09/22 05:55 Creatinine 0.8 mg/dL (0.8-1.3) 01/09/22 05:55 Estimated GFR > 60 ml/min 01/09/22 05:55 BUN/Creatinine Ratio 11 % 01/09/22 05:55 Glucose 83 mg/dL (75-100) 01/09/22 05:55 Calcium 9.6 mg/dL (8.4-10.2) 01/09/22 05:55 Magnesium 1.70 mg/dL (1.7-2.3) 01/08/22 06:44 Total Bilirubin 1.20 mg/dL (0.1-1.2) 01/09/22 05:55 AST 29 units/L (5-40) 01/09/22 05:55 ALT 44 units/L (7-56) 01/09/22 05:55 Alkaline Phosphatase 110 units/L (35-129) 01/09/22 05:55 Total Creatine Kinase 247 units/L (55-170) H 01/08/22 06:41 CK-MB (CK-2) 1.4 ng/mL (0.0-4.0) 01/08/22 06:41 CK-MB (CK-2) Rel Index 0.5 (0-4) 01/08/22 06:41 Troponin T < 0.010 ng/mL (0.00-0.029) 01/08/22 06:41 Total Protein 7.0 g/dL (6.3-8.2) 01/09/22 05:55 Albumin 4.7 g/dL (3.9-5) 01/09/22 05:55 Albumin/Globulin Ratio 2.0 % 01/09/22 05:55 Lipase 641 units/L (13-60) H 01/09/22 05:55 Reyes/IV: Voiding Method Toilet Active Medications - Current Medications Current Medications: Generic Name Dose Route Start Last Admin Trade Name Freq PRN Reason Stop Dose Admin Acetaminophen 650 mg 01/08/22 10:44 Acetaminophen 325 Mg Tab PO Q4H PRN Pain MILD(1-3)/Fever >100.5/PALMER Albuterol 2.5 mg 01/08/22 10:44 Albuterol 2.5 Mg/3 Ml Nebu IH Q4HRT PRN Shortness Of Breath Famotidine 20 mg 01/10/22 10:00 Famotidine 20 Mg Tab PO BID KEYON Hydromorphone HCl 1 mg 01/08/22 10:43 01/10/22 07:11 Hydromorphone 1 Mg/1 Ml Inj IV 1 mg Q6H PRN Administration Pain , Severe (7-10) Lactated Ringer's 1,000 mls @ 125 mls/hr 01/08/22 10:45 01/09/22 20:30 Lactated Ringers IV 125 mls/hr DIRECT KEYON Administration Piperacillin Sod/Tazobactam Sod 4.5 gm in 100 mls @ 200 mls/hr 01/08/22 11:00 01/10/22 02:16 Zosyn/Ns 4.5gm/100ml IV 200 mls/hr Q8H KEYON Administration Protocol Lorazepam 2 mg 01/08/22 10:44 01/08/22 14:39 Lorazepam 2 Mg/Ml Vial IV 2 mg Q1H PRN Administration [facility] [place] 8-15 Lorazepam 4 mg 01/08/22 10:44 Lorazepam 2 Mg/Ml Vial IV Q1H PRN [facility] [place] 16-25 Morphine Sulfate 2 mg 01/08/22 10:44 01/09/22 19:22 Morphine 2 Mg/1 Ml Inj IV 2 mg Q4H PRN Administration Pain, Moderate (4-6) Naloxone HCl 0.1 mg 01/08/22 10:44 Naloxone 0.4 Mg/1 Ml Inj IV Q2MIN PRN Res Rate </= 8 or 02 SAT < 92% Ondansetron HCl 4 mg 01/08/22 10:44 Ondansetron 4 Mg/2 Ml Inj IV Q4H PRN Nausea And Vomiting Senna 8.6 mg 01/08/22 22:00 01/09/22 22:27 Sennosides 8.6 Mg Tab PO 8.6 mg Q12HR KEYON Administration Sodium Chloride 10 ml 01/08/22 22:00 01/09/22 23:57 Sodium Chloride 0.9% 10 Ml Flush Syringe IV 10 ml BID KEYON Administration Sodium Chloride 10 ml 01/08/22 10:44 Sodium Chloride 0.9% 10 Ml Flush Syringe IV PRN PRN LINE FLUSH
[2022-01-10 09:57] LABS: Alanine Aminotransferase 30 units/L (7-56); Albumin 4.2 g/dL (3.9-5); BUN/Creatinine Ratio 8; Blood Urea Nitrogen 7 mg/dL (9-20); Calcium 9.6 mg/dL (8.4-10.2); Hemolysis Index 4
[2022-01-10] MEDS: SENNOSIDES 8.6 MG TAB PO SCH ×2 (10:28→21:36)
[2022-01-10] MEDS: LACTATED RINGERS 1,000 ML IV SCH ×2 (10:28→20:43)
[2022-01-10] MEDS: FAMOTIDINE 20 MG TAB PO SCH ×2 (10:28→21:38)
[2022-01-11] MEDS: MORPHINE 2 MG/1 ML INJ IV PRN (01:51)
--- NOTE | 2022-01-11 08:43 | Gastroenterology Progress Note ---
Assessment and Plan Patient continues to improve Resume regular diet From GI perspective patient is recovered enough to be discharged with outpatient follow-up with GI Reviewed with him alcohol cessation education He will also need to follow-up with me to monitor his liver given fatty appearance on imaging which is suspected to be due to his alcohol use - Patient Problems (1) Acute pancreatitis Current Visit: Yes Status: Acute (2) ETOH abuse Current Visit: Yes Status: Acute (3) Epigastric abdominal pain Current Visit: Yes Status: Acute Subjective Date of service: 01/11/22 Principal diagnosis: pancreatitis Interval history: Patient reports significant improvement in his symptoms currently reporting that he is hungry wanting more food, abdominal pain is only mild epigastric constant radiates to back improving, better with time worse with pressure Objective - Constitutional Vitals: Temp Pulse Resp BP Pulse Ox 98.8 F 53 L 20 158/100 99 01/11/22 05:53 01/11/22 05:53 01/11/22 05:53 01/11/22 05:53 01/11/22 05:53 General appearance: no acute distress - EENT Eyes: EOM intact - Neck Neck: supple - Respiratory Respiratory effort: normal - Cardiovascular Rhythm: regular - Gastrointestinal General gastrointestinal: Present: soft, normal bowel sounds, other (Mild epigastric tender to palpation) - Integumentary Integumentary: Present: dry - Neurologic Neurological: alert and oriented x3 - Psychiatric Psychiatric: appropriate mood/affect - Labs CBC & Chem 7: 01/10/22 09:00 01/10/22 09:00 Labs: Laboratory Results - last 24 hr 01/10/22 01/10/22 01/11/22 09:00 09:00 05:54 WBC 11.5 H RBC 4.68 Hgb 14.2 Hct 43.4 MCV 93 MCH 30 MCHC 33 RDW 12.2 L Plt Count 221 Sodium 136 L Potassium 4.1 Chloride 95.6 L Carbon Dioxide 29 Anion Gap 16 BUN 7 L Creatinine 0.9 Estimated GFR > 60 BUN/Creatinine Ratio 8 Glucose 98 Calcium 9.6 Total Bilirubin 1.20 AST 20 ALT 30 Alkaline Phosphatase 93 Total Protein 6.7 Albumin 4.2 Albumin/Globulin Ratio 1.7 Lipase 278 H 394 H
--- NOTE | 2022-01-11 09:11 | Discharge Summary ---
Providers - Providers Date of Admission: 01/08/22 10:44 Date of discharge: 01/11/22 Attending physician: BRENDA STEVENS 01/08/22 10:44 Consult to Physician [CONS] Routine Comment: Consulting Provider: AMARILIS MENDEZ Physician Instructions: Reason For Exam: pancreatitis Primary care physician: JULES SORENSEN Hospitalization Reason for admission: pancreatitis Condition: Fair Hospital course: Patient is a 36-year-old male with no significant past medical history except for prior pancreatitis from alcohol use present with a chief complaint of abdominal pain. Patient states he drinks alcohol frequently and has a history of chronic pancreatitis. Patient states symptoms began 2 days ago after consum ing wine he developed epigastric and left upper quadrant abdominal pain described as sharp and burning in nature. Patient then developed nausea vomiting. Patient denies history of diarrhea or fever at home however this morning the significant other states EMS was called and they thought the patient had a fever. Patient complains of some shortness of breath. In the ED admitted with abdominal pain score of 10/10 now on 03/12 and states that the fentanyl he was given was not working. He denies any hematemesis, diarrhea or melena. Imaging studies done in the ER showed possible early necrosis. Patient admitted with diagnosis below Acute on chronic pancreatitis likely secondary to EtOH use EtOH use disorder and dependence Abdominal pain secondary to above Systemic inflammatory response syndrome secondary to acute pancreatitis Elevated transaminases Leukocytosis Hypomagnesemia Tobacco use disorder Hospital course: 01/09: Patient was admitted for acute pancreatitis secondary to alcohol use. GI saw the patient today increased fluid. Leukocytosis still worsening will keep a clear monitoring of this. Clear liquids started today by GI as tolerated by nalini kuo. Again counseling about alcohol use discussed extensively. Lipase is decreasing LFTs improved. Will give Magnesium supplementation Patient can be discharged once tolerating diet. 01/10: Lipase has improved from 915 to 641 then 278, continue hydration with lactated Ringer's Discontinue Zosyn, no indication per GI, continue pain control and Antiemetic Monitor labs replace electrolytes [facility] protocol for withdrawal Thiamine, multivitamin, and folic acid If patient continues to improve can switch to oral pain medications and discharge most likely in the next 1 to 2 days 01/11: Patient tolerating diet and is felt to have received maximal hospital benefit for discharge. Dedicated discharge time 35 minutes Disposition: 30 STILL A PATIENT Final Discharge Diagnosis (Prints w/discharge instructions): Acute on chronic pancreatitis likely secondary to EtOH use. EtOH use disorder and dependence. Abdominal pain secondary to above. Systemic inflammatory response syndrome secondary to acute pancreatitis. Elevated transaminases. Leukocytosis. Hypomagnesemia. Tobacco use disorder Core Measure Documentation - Palliative Care Palliative Care/ Comfort Measures: Not Applicable - Core Measures Any of the following diagnoses?: none Exam - Constitutional Vitals: Temp Pulse Resp BP Pulse Ox 98.8 F 53 L 20 158/100 99 01/11/22 05:53 01/11/22 05:53 01/11/22 05:53 01/11/22 05:53 01/11/22 05:53 General appearance: Present: no acute distress, well-nourished - EENT Eyes: Present: PERRL ENT: hearing intact, clear oral mucosa - Neck Neck: Present: supple, normal ROM - Respiratory Respiratory effort: normal Respiratory: bilateral: CTA - Cardiovascular Heart Sounds: Present: S1 & S2. Absent: rub, click - Extremities Extremities: pulses symmetrical, No edema Peripheral Pulses: within normal limits - Abdominal General gastrointestinal: Present: soft, non-tender, non-distended, normal bowel sounds Male genitourinary: Present: normal - Integumentary Integumentary: Present: clear, warm, dry - Musculoskeletal Musculoskeletal: gait normal, strength equal bilaterally - Psychiatric Psychiatric: appropriate mood/affect, intact judgment & insight - Neurologic Neurologic: CNII-XII intact, moves all extremities Plan Activity: advance as tolerated Weight Bearing Status: Weight Bear as Tolerated Diet: regular Follow up with: JULES SORENSEN MD [Primary Care Provider] - 3-5 Days Prescriptions: oxyCODONE /ACETAMINOPHEN [Percocet 5/325] 1 tab PO Q4HR #8 tab
[2022-01-11] MEDS: SENNOSIDES 8.6 MG TAB PO SCH (09:17)
[2022-01-11] MEDS: FAMOTIDINE 20 MG TAB PO SCH (09:17)
[2022-01-11 09:20] VITALS: BP 148/98
== END 2022-01-11 13:07 | disposition home or self-care (01) | DRG 439 ==
LOC: ED 05:15 → 3A 10:44
PROVIDERS: ADMIT Internal Medicine; ATTEND Hospitalist
DX: K85.20 Alcohol induced acute pancreatitis without necrosis or infection (principal); R65.10 Systemic inflammatory response syndrome (SIRS) of non-infectious origin without acute organ dysfunction; F17.200 Nicotine dependence, unspecified, uncomplicated; E83.42 Hypomagnesemia; F10.20 Alcohol dependence, uncomplicated; Y90.9 Presence of alcohol in blood, level not specified
CPT/HCPCS: 36415; 71275; 74177; 80053; 82550; 82553; 83690; 83735; 84484; 85025; 85027; 93005; 96374; 96375; 99285; G0378; J3490; J1170; J2060; J2270; J2405; J2543; J3010; J3475; J7030; J7120; Q9967